=== PATIENT | female | born 1975 | race Caucasian/White ===

== ENCOUNTER 2016-11-11 16:20 | Emergency (ER) | payer OTHER ==
[~2016-11-11] VITALS: Ht 149.9 cm; Wt 89.0 kg
[~2016-11-11 16:20] MED LIST: CIPR-263 PO; GEMF600T3 PO; HYDR25TA PO; TRAM50TA3 PO
[2016-11-11] MEDS ORDERED: IBUPROFEN 600MG TABLET PO STA (18:54)
[2016-11-11] MEDS ORDERED: ONDANSETRON 4MG ODT PO STA (18:54)
[2016-11-11 19:22] LABS: BASOPHILS % 0.9 % (0.0-2.0); EOSINOPHILS % 3.9 % (0.0-5.0); HEMATOCRIT. 42.3 % (36.0-48.0); HEMOGLOBIN. 14.3 g/dL (12.0-16.0); LYMPHOCYTES % 26.2 % (20.0-50.0); MEAN CORPUSCULAR HEMOGLOBIN 30.2 pg (28.0-32.0); MEAN CORPUSCULAR HGB CONC 33.7 g/dL (31.0-37.0); MEAN CORPUSCULAR VOLUME 89.6 fL (81.0-99.0); MEAN PLATELET VOLUME 7.8 fl (7.4-10.4); MONOCYTES % 12.7 % (2.0-8.0); NEUTROPHILS % 56.3 % (40.0-76.0); PLATELET 350 x1000/uL (130-400); RED BLOOD CELL COUNT 4.72 mill/uL (4.2-5.4); RED CELL DISTRIBUTION WIDTH 13.2 % (11.6-14.6); WHITE BLOOD COUNT 9.3 x1000/uL (4.5-11.0)
[2016-11-11 19:23] LABS: CLARITY URINE CLOUDY (CLEAR); COLOR URINE YELLOW (YELLOW); GLUCOSE URINE TRACE (NEGATIVE); KETONES URINE NEGATIVE (NEGATIVE); LEUKOCYTE ESTERASE URINE 2+ (NEGATIVE); NITRITE URINE NEGATIVE (NEGATIVE); OCCULT BLOOD URINE TRACE (NEGATIVE); PH URINE 6.5 (4.5-8.0); PROTEIN URINE NEGATIVE (NEGATIVE); SPECIFIC GRAVITY URINE 1.013 (1.005-1.030)
[2016-11-11 19:30] LABS: ALBUMIN 3.5 g/dL (3.4-5.0); ANION GAP 16; CALCIUM 8.7 mg/dL (8.5-10.1); CARBON DIOXIDE 26 mEq/L (21-32); CHLORIDE 104 mEq/L (98-107); INDEX HEMOLYSI 2 (1-3); INDEX ICTERIC 1 (1-4); INDEX LIPEMIC 1 (1-3); LIPASE 195 IU/L (73-393); UREA NITROGEN BLOOD 6 mg/dL (7-21)
[2016-11-11 19:32] LABS: ALANINE AMINOTRANSFERASE 40 IU/L (13-61); eGFR > 60 mL/min (>60)
[2016-11-11 19:42] LABS: *AMPHETAMINES SCREEN URINE NEGATIVE (NEGATIVE); *BARBITURATES SCREEN URINE NEGATIVE (NEGATIVE); *BENZODIAZEPINES SCREEN URINE NEGATIVE (NEGATIVE); *COCAINE SCREEN URINE NEGATIVE (NEGATIVE); CANNABINOID URINE SCREEN NEGATIVE (NEGATIVE); ECSTASY MDMA SCREEN URINE NEGATIVE (NEGATIVE); METHADONE URINE SCREEN NEGATIVE (NEGATIVE); OPIATES URINE SCREEN NEGATIVE (NEGATIVE); PHENCYCLIDINE URINE SCREEN NEGATIVE (NEGATIVE)
[2016-11-11 19:50] LABS: BACTERIA URINE 3+; CALCIUM OXALATE CRYSTALS URINE 1+ /lpf; RBC URINE 0-2 /hpf (0-2); SQUAMOUS EPITHELIAL CELL URINE 1+ /lpf (RARE/1+)
[2016-11-11] MEDS ORDERED: KETOROLAC 60MG/2ML VIAL IM ONE (20:30)
[2016-11-11] MEDS ORDERED: MECLIZINE 12.5MG TABLET PO ONE (20:30)
[2016-11-11 21:41] VITALS: BP 158/108
== END 2016-11-11 21:48 | disposition home or self-care (01) ==
LOC: ER 19:20
DX: N39.0 Urinary tract infection, site not specified (principal); H81.10 Benign paroxysmal vertigo, unspecified ear; I10 Essential (primary) hypertension; Z79.1 Long term (current) use of non-steroidal anti-inflammatories (NSAID); Z79.899 Other long term (current) drug therapy; Z87.442 Personal history of urinary calculi
CPT/HCPCS: 36415; 71010; 80053; 80305; 81001; 81025; 83690; 85025; 96372; 99285; J1885; Q0162; J8597

== ENCOUNTER 2017-01-21 17:54 | Emergency (ER) | payer OTHER ==
[~2017-01-21] VITALS: Ht 149.9 cm; Wt 91.0 kg
[2017-01-21 18:08] VITALS: BP 159/99
== END 2017-01-22 01:35 | disposition left against medical advice (07) ==
LOC: ER 17:54
DX: Z53.21 Procedure and treatment not carried out due to patient leaving prior to being seen by health care provider (principal)

== ENCOUNTER 2017-05-11 09:26 | Inpatient (IN) | payer OTHER ==
[~2017-05-11] VITALS: Ht 149.9 cm; Wt 81.2 kg
[2017-05-11 10:14] LABS: BASOPHILS % 1.1 % (0.0-2.0); EOSINOPHILS % 3.7 % (0.0-5.0); HEMATOCRIT. 42.9 % (36.0-48.0); HEMOGLOBIN. 14.5 g/dL (12.0-16.0); MEAN CORPUSCULAR HEMOGLOBIN 30.5 pg (28.0-32.0); MEAN CORPUSCULAR VOLUME 90.4 fL (81.0-99.0); MONOCYTES % 6.6 % (2.0-8.0); NEUTROPHILS % 67.6 % (40.0-76.0); PLATELET 377 x1000/uL (130-400); RED BLOOD CELL COUNT 4.74 mill/uL (4.2-5.4); RED CELL DISTRIBUTION WIDTH 13.1 % (11.6-14.6)
[2017-05-11 10:21] LABS: PROTHROMBIN TIME 10.5 sec (9.4-11.6)
[2017-05-11 10:29] LABS: HCG SCREEN NEGATIVE
[2017-05-11 10:30] LABS: CARBON DIOXIDE 23 mEq/L (21-32); CHLORIDE 106 mEq/L (98-107); ETHANOL BLOOD < 10 mg/dL
[2017-05-11 10:31] LABS: TROPONIN I < 0.02 ng/mL (0.00-0.04)
[2017-05-11] MEDS ORDERED: ASPIRIN 325MG TABLET PO ONE (11:00)
[2017-05-11 12:12] LABS: CLARITY URINE CLEAR (CLEAR); COLOR URINE YELLOW (YELLOW); GLUCOSE URINE 1+ (NEGATIVE); KETONES URINE NEGATIVE (NEGATIVE); LEUKOCYTE ESTERASE URINE NEGATIVE (NEGATIVE); NITRITE URINE NEGATIVE (NEGATIVE); OCCULT BLOOD URINE NEGATIVE (NEGATIVE); PROTEIN URINE NEGATIVE (NEGATIVE); SPECIFIC GRAVITY URINE 1.009 (1.005-1.030); UROBILINOGEN URINE 0.2 E.U./dL (0.2-1.0)
[2017-05-11 12:22] LABS: *AMPHETAMINES SCREEN URINE NEGATIVE (NEGATIVE); *BARBITURATES SCREEN URINE NEGATIVE (NEGATIVE); *BENZODIAZEPINES SCREEN URINE NEGATIVE (NEGATIVE); *COCAINE SCREEN URINE NEGATIVE (NEGATIVE); CANNABINOID URINE SCREEN NEGATIVE (NEGATIVE); METHADONE URINE SCREEN NEGATIVE (NEGATIVE); OPIATES URINE SCREEN NEGATIVE (NEGATIVE); PHENCYCLIDINE URINE SCREEN NEGATIVE (NEGATIVE)
[2017-05-11] MEDS ORDERED: CLONIDINE 0.1MG TABLET PO PRN (14:45)
[2017-05-11] MEDS ORDERED: IPRATROPIUM/ALBUTEROL 0.5-3(2.5)MG/3ML NEB INH PRN (14:45)
[2017-05-11] MEDS ORDERED: ONDANSETRON HCL 4MG/2ML VIAL IV PRN (14:45)
[2017-05-11] MEDS ORDERED: DEXTROSE 50% WATER 50ML SYRINGE IV PRN (14:45)
[2017-05-11] MEDS ORDERED: DIPHENHYDRAMINE 50MG/ML VIAL IV PRN (14:45)
[2017-05-11] MEDS ORDERED: HYDROCODONE/ACETAMINOPHEN 5/325MG TABLET PO PRN (14:45)
[2017-05-11 16:20] VITALS: BP 136/89
[2017-05-11 20:00] VITALS: BP 141/92
[2017-05-11] MEDS: BLOOD SUGAR DIAGNOSTIC STRIP TEST SCH (20:57)
[2017-05-11] MEDS: INSULIN LISPRO 100 UNITS/ML SUBCUT SCH (21:01)
[2017-05-12] VITALS: BP 138/85
[2017-05-12] MEDS: ACETAMINOPHEN 325MG TABLET PO PRN ×2 (01:57→11:40)
[2017-05-12 04:00] VITALS: BP 120/81
[2017-05-12] MEDS: BLOOD SUGAR DIAGNOSTIC STRIP TEST SCH ×2 (06:11→11:35)
[2017-05-12] MEDS: INSULIN LISPRO 100 UNITS/ML SUBCUT SCH ×2 (06:11→11:35)
[2017-05-12 07:03] LABS: BASOPHILS % 0.8 % (0.0-2.0); EOSINOPHILS % 3.7 % (0.0-5.0); HEMATOCRIT. 40.7 % (36.0-48.0); HEMOGLOBIN. 14.2 g/dL (12.0-16.0); LYMPHOCYTES % 20.3 % (20.0-50.0); MEAN CORPUSCULAR HEMOGLOBIN 31.3 pg (28.0-32.0); MEAN CORPUSCULAR VOLUME 89.9 fL (81.0-99.0); MONOCYTES % 9.4 % (2.0-8.0); NEUTROPHILS % 65.8 % (40.0-76.0); PLATELET 338 x1000/uL (130-400); RED BLOOD CELL COUNT 4.53 mill/uL (4.2-5.4); RED CELL DISTRIBUTION WIDTH 13.4 % (11.6-14.6)
[2017-05-12 07:44] LABS: CARBON DIOXIDE 23 mEq/L (21-32); CHLORIDE 105 mEq/L (98-107); HDL CHOLESTEROL 33 mg/dL (40-59); LDL CHOLESTEROL 125 mg/dL (5-100)
[2017-05-12 07:45] LABS: TROPONIN I < 0.02 ng/mL (0.00-0.04)
[2017-05-12 08:00] VITALS: BP 143/92
[2017-05-12] MEDS: AMLODIPINE 5MG TABLET PO SCH ×2 (09:07→09:13)
[2017-05-12 12:00] VITALS: BP 132/92
== END 2017-05-12 14:20 | disposition home or self-care (01) | DRG 45 ==
LOC: ER 09:42 → 8WST 10:52 → EDBEDREQ 10:57 → EDBEDREQSVC 10:57 → ENRESERV 15:35
PROVIDERS: ADMIT Internal Medicine; ATTEND Internal Medicine
DX: I63.9 Cerebral infarction, unspecified (principal); E11.65 Type 2 diabetes mellitus with hyperglycemia; I10 Essential (primary) hypertension; R53.1 Weakness; G83.24 Monoplegia of upper limb affecting left nondominant side; Z79.899 Other long term (current) drug therapy; Z87.442 Personal history of urinary calculi; Z91.14 Patient's other noncompliance with medication regimen; Z79.2 Long term (current) use of antibiotics
CPT/HCPCS: 36415; 70450; 70551; 71010; 80053; 80061; 80305; 81001; 82962; 83036; 83880; 84484; 84703; 85025; 85610; 86850; 86900; 87040; 93005; 97162; 99291; G0482; J1815

== ENCOUNTER 2018-07-11 17:16 | Emergency (ER) | payer SELFPAY ==
[~2018-07-11] VITALS: Ht 152.4 cm; Wt 89.0 kg
[~2018-07-11 17:16] MED LIST changes: -GEMF600T3 PO; +GEMF600T4 PO
[2018-07-11 18:06] VITALS: BP 172/104
== END 2018-07-11 23:00 | disposition left against medical advice (07) ==
LOC: ER 17:16
DX: Z53.21 Procedure and treatment not carried out due to patient leaving prior to being seen by health care provider (principal)